=== PATIENT | female | born 1950 | race Caucasian/White ===

== ENCOUNTER 2025-03-04 06:30 | Inpatient (IN) | payer MEDICARE ==
[~2025-03-04] VITALS: Ht 170.2 cm; Wt 122.5 kg
[2025-03-04] MEDS ORDERED: dexaMETHasone SOD PHOSPHATE 2 ML ONE (06:44)
[2025-03-04] MEDS ORDERED: ANESTHESIA TRAY IN PYXIS 1 EA TRAY MC ONE (06:44)
[2025-03-04] MEDS ORDERED: LIDOCAINE 2%-EPI 1:100,000 30 ML VIAL ONE (06:44)
[2025-03-04] MEDS ORDERED: VANCOMYCIN 1 GM VIAL ONE (06:44)
[2025-03-04] MEDS ORDERED: FENTANYL PF 250MCG/5ML AMPUL ONE (07:17)
[2025-03-04] MEDS ORDERED: ROCURONIUM BROMIDE 50 MG/5 ML ONE (07:19)
[2025-03-04] MEDS ORDERED: HYDROMORPHONE INJ 2 MG/ML DISP.SYRIN IV PRN (11:30)
[2025-03-04] MEDS ORDERED: ACETAMINOPHEN 325 MG TABLET PO PRN ×2 (11:30→16:30)
[2025-03-04] MEDS ORDERED: ONDANSETRON HCL/PF 4 MG/2 ML VIAL IVP PRN ×2 (11:30→16:30)
[2025-03-04 12:00] VITALS: BP 135/66; TEMP 98; O2SAT 99
[2025-03-04 12:30] VITALS: BP 122/65; TEMP 98; O2SAT 99
[2025-03-04 13:00] VITALS: BP 130/66; TEMP 98.2; O2SAT 99
[2025-03-04 16:20] VITALS: BP 144/76; TEMP 97.5; O2SAT 95
[2025-03-04] MEDS ORDERED: MAG HYDROX/AL HYDROX/SIMETH 30 ML UDC PO PRN (16:30)
[2025-03-04] MEDS ORDERED: Z GUARD REMEDY 4 OZ OINT TP PRN (16:30)
[2025-03-04] MEDS ORDERED: MAGNESIUM HYDROXIDE 30 ML UDC PO PRN (16:30)
[2025-03-04] MEDS: VANCOMYCIN 1 GM in IV D5W 250ml IV SCH (18:52)
[2025-03-04] MEDS: IV NS 0.9% 1,000 ML IV PRN (18:52)
[2025-03-04] MEDS ORDERED: ICOS1CAP PO (18:56)
[2025-03-04] MEDS ORDERED: AZIL40TA PO (18:56)
[2025-03-04] MEDS ORDERED: CYAN50009 PO (18:56)
[2025-03-04] MEDS ORDERED: SITA1TAB2 PO (18:56)
[2025-03-04] MEDS ORDERED: CHOL100043 PO (18:56)
[2025-03-04 20:00] VITALS: BP 143/68; TEMP 98.8; O2SAT 94
[2025-03-05 06:27] LABS: BASOPHILS % (AUTO) 0.1 % (0.0-2.0); EOSINOPHILS % (AUTO) 0.1 % (0.0-6.0); HEMATOCRIT 40 % (33-45); HEMOGLOBIN 13.4 g/dL (11.5-14.8); LYMPHOCYTES # (AUTO) 1.5 K/uL (0.8-4.8); LYMPHOCYTES % (AUTO) 17.1 % (20.0-44.0); MEAN CORPUSCULAR HEMOGLOBIN 31 PG (26.0-33.0); MEAN CORPUSCULAR HGB CONC 34 g/dl (31.0-36.0); MEAN CORPUSCULAR VOLUME 91 fL (82-100); MONOCYTES # (AUTO) 0.7 K/uL (0.1-1.30); MONOCYTES % (AUTO) 8.4 % (2.0-12.0); NEUTROPHILS # (AUTO) 6.3 K/uL (1.8-8.9); NEUTROPHILS % (AUTO) 74.3 % (43.0-81.0); PLATELET COUNT (AUTO) 153 K/uL (150-450); RED BLOOD CELL COUNT(AUTO) 4.35 MIL/uL (4.0-5.2); RED CELL DISTRIBUTION WIDTH 14.2 % (11.5-15.0); WHITE BLOOD COUNT (AUTO) 8.5 K/uL (4.3-11.0)
[2025-03-05 06:37] LABS: CALCIUM, SERUM 9.2 mg/dL (8.5-10.1); CREATININE 0.6 mg/dL (0.6-1.3); MAGNESIUM 2.2 mg/dL (1.8-2.4); PHOSPHORUS 3.4 mg/dL (2.5-4.9); POTASSIUM 3.6 mmol/L (3.5-5.1)
[2025-03-05 08:00] VITALS: BP_SYST 102; BP_SYST 148; BP_DIAS 58; BP_DIAS 72; TEMP 97.7; TEMP 97.9; O2SAT 100; O2SAT 96
== END 2025-03-05 10:00 | disposition home or self-care (01) | DRG 908 ==
LOC: DS 06:30 → MED 10:17
PROVIDERS: ADMIT Dentist Oral and Maxillofacial Surgery; ATTEND Dentist Oral and Maxillofacial Surgery
PROC: 0NSR04Z Reposition Maxilla with Internal Fixation Device, Open Approach (ICD-10-PCS; 2025-03-04)
PROC: 0N5R0ZZ Destruction of Maxilla, Open Approach (ICD-10-PCS; 2025-03-04)
PROC: 0N5V0ZZ Destruction of Left Mandible, Open Approach (ICD-10-PCS; 2025-03-04)
PROC: 0NUR07Z Supplement Maxilla with Autologous Tissue Substitute, Open Approach (ICD-10-PCS; 2025-03-04)
PROC: 0NUV07Z Supplement Left Mandible with Autologous Tissue Substitute, Open Approach (ICD-10-PCS; 2025-03-04)
PROC: 0NSV04Z Reposition Left Mandible with Internal Fixation Device, Open Approach (ICD-10-PCS; principal; 2025-03-04 07:30)
DX: T86.831 Bone graft failure (principal); M87.9 Osteonecrosis, unspecified; S02.40DK Maxillary fracture, left side, subsequent encounter for fracture with nonunion; S02.40CK Maxillary fracture, right side, subsequent encounter for fracture with nonunion; S02.609K Fracture of mandible, unspecified, subsequent encounter for fracture with nonunion; X58.XXXA Exposure to other specified factors, initial encounter; Y92.9 Unspecified place or not applicable; M85.60 Other cyst of bone, unspecified site; D16.4 Benign neoplasm of bones of skull and face; D16.5 Benign neoplasm of lower jaw bone; M27.2 Inflammatory conditions of jaws; Y92.009 Unspecified place in unspecified non-institutional (private) residence as the place of occurrence of the external cause; Y83.2 Surgical operation with anastomosis, bypass or graft as the cause of abnormal reaction of the patient, or of later complication, without mention of misadventure at the time of the procedure; E11.69 Type 2 diabetes mellitus with other specified complication; X58.XXXD Exposure to other specified factors, subsequent encounter; J32.0 Chronic maxillary sinusitis
CPT/HCPCS: 36415; 80048-TC; 82962-TC; 83735-TC; 84100-TC; 85025-TC; A4223; A4338; C1713; G0378; J0690; J1100; J2405; J2704; J3010; J3370; J3490; J7030; J7060